=== PATIENT | female | born 1965 | race American Indian/Alaskan Native ===

== ENCOUNTER 2017-08-10 10:17 | Outpatient (CLI) | payer MEDICARE ==
--- NOTE | 2017-08-10 11:36 | XRay Report ---
Right knee: Pain. There is a total knee replacement which appears well applied to the respective surfaces. No bone lucencies are identified to indicate loosening or infection. There is good alignment of the knee joint. No soft tissue swelling and no effusion identified. No prior study for comparison. Impression: Total knee replacement with no apparent complication.
== END 2017-08-10 10:18 | disposition home or self-care (01) ==
LOC: SPVIMAG 10:17
PROVIDERS: ATTEND Orthopaedic Surgery Sports Medicine
DX: M25.561 Pain in right knee (principal); Z96.651 Presence of right artificial knee joint